=== PATIENT | female | born 1950 | race Caucasian/White ===

== ENCOUNTER 2016-09-11 09:11 | Emergency (ER) | payer OTHER, MEDICAID ==
[2016-09-11 09:19] VITALS: BMI 22.4
[2016-09-11] MEDS ORDERED: ECOTRIN TAB 325 MG PO ONE (10:02)
[2016-09-11] MEDS ORDERED: ASPIRIN 81 MG CHEWTAB ONE (10:04)
[2016-09-11] MEDS ORDERED: NS 1000 ML 1,000 ML ONE (10:04)
--- NOTE | 2016-09-11 10:04 | DR.GENAD ---
HPI - PCP Primary Care Physician: LANA PALOMARES - Complaint/Symptoms Chief Complaint Doctors Comments: Patient presents with c/o left arm pain and ledf chest wall pain or pressure. She denies a history of cardiopulmonary disease. On yesterday her spouse states that her heart rate was increased. up to 110. Chief Complaint:: PT C/O LEFT CHEST WALL PAIN AND LEFT ARM AND PT IS BURPING ".... AND I PICKED PEES THE DAY BEFORE YESTERDAY AND THAT COULD BE IT..BR Self Treatment fo Chief Complaint: PTS PAIN STARTED AND HOUR AGO AND PT WENT TO [facility] AND PT WAS TOLD TO COME TO THE ER.. - Source History Provided: Patient - Mode of Arrival Mode of Arrival: Wheelchair - Timing Onset of Chief Complaint: 09/11/16 PMH - PMH Past Medical History: Yes Past Medical History: Arthritis, Hypertension Past Surgical History: Yes Past Surgical History Comment: KNEE REPLACEMENT, FOOT , WRIST, THUMB, BLADDER TAC.. - Family History History of Family Medical Conditions: Yes Family Medical History: [place] Family Medical History Comment: MOTHER AT 58 - Social History Does patient currently use any type of tobacco product: No Have you used tobacco products in the last 12 months: No Type of Tobacco Use: None Does any household member use tobacco: No Alcohol Use: Occasionally Do you use any recreational Drugs:: No Lives With: Family Lives Where: Home - infectious screening In the last 2 months have you had wt loss of >10#?: NO Have you had fever, night sweats or hemotysis?: No Have you traveled outside the country in the last 6 months?: No Isolation: Standard ROS - Review of Systems Eyes: No Symptoms Reported ENTM: No Symptoms Reported Respiratoy: No Symptoms Reported Cardiovascular: No Symptoms Reported Gastrointestinal/Abdominal: No Symptoms Reported Genitourinary: No Symptoms Reported Neurological: No Symptoms Reported Musculoskeletal: No Symptoms Reported Integumentary: No Symptoms Reported Hematologic/Lymphatic: No Symptoms Reported Endocrine: No Symptoms Reported Psychiatric: No Symptoms Reported All Other Systems: Reviewed and Negative PE - Vital Signs Vitals: Temperature 97.7 F Pulse Rate [Right Brachial] 70 Pulse Rate 79 Respiratory Rate 20 Blood Pressure [Right Arm] 125/60 Blood Pressure 121/61 O2 Sat by Pulse Oximetry 100 - General Limitations: No Limitations General Appearance: Alert, In No Apparent Distress - Head Head Exam: Normal Inspection, Atraumatic - Eyes Eye exam: Normal Appearance, PERRL, EOMI - ENT ENT Exam: Normal Exam, Normal Oropharynx External Ear Exam: Normal External Inspection TM/Canal Exam: Bilateral Normal Nose Exam: Normal Nose Exam Mouth Exam: Normal Inspection Throat Exam: Normal Inspection - Neck Neck Exam: Normal Inspection, Full ROM - Chest Chest Inspection: Normal Inspection - Respiratory Respiratory Exam: Normal Lung Sounds Bilat Respiratory Exam: Bilateral Clear to Auscultation - Cardiovascular Cardiovascular Exam: Regular Rate, Normal Rhythm - Abdominal Exam Abdominal Exam: Normal Inspection Abdominal Tenderness: negative: RUQ, RLQ, LUQ, LLQ, Epigastrium, Suprapubic, Diffuse, Mild, Moderate, Severe, Other - Extremities Extremities Exam: Normal Inspection - Back Back Exam: Normal Inspection - Neurologic Neurological Exam: Alert, Oriented X3, CN II-XII Intact - Psychiatric Psychiatric Exam: Normal Affect, Normal Mood - Skin Skin Exam: Warm, Dry, Intact Course - Reevaluation 1st: Improved ROR - Labs Reviewed Laboratory Results Reviewed?: Yes (cardiac enzymes negative) Result Diagrams: 09/11/16 10:08 09/11/16 10:08 Laboratory: WBC 6.9 X10^3/uL (3.6-10.0) 09/11/16 10:08 RBC 3.47 X10^6/uL (3.5-5.4) L 09/11/16 10:08 Hgb 11.3 g/dL (12.0-16.0) L 09/11/16 10:08 Hct 32.5 % (36.0-47.0) L 09/11/16 10:08 MCV 93.7 fL (80.0-100.0) 09/11/16 10:08 MCH 32.5 pg (27.0-34.0) 09/11/16 10:08 MCHC 34.7 g/dL (33.0-35.0) 09/11/16 10:08 RDW 12.6 % (11.6-16.5) 09/11/16 10:08 Plt Count 244 X10^3/uL (150.0-450.0) 09/11/16 10:08 MPV 8.4 fL (7.4-11.0) 09/11/16 10:08 Neut % 67.7 % (42.0-75.0) 09/11/16 10:08 Lymph % 22.8 % (21.0-51.0) 09/11/16 10:08 [place] % 7.5 % (0.0-13.0) 09/11/16 10:08 Eos % 0.6 % (0.9-2.9) L 09/11/16 10:08 Baso % 1.4 % (0.2-1.0) H 09/11/16 10:08 Neut # 4.6 x10^3/uL (2.2-4.8) 09/11/16 10:08 Lymph # 1.6 X10^3/uL (1.3-2.9) 09/11/16 10:08 [place] # 0.5 x10^3/uL (0.3-0.8) 09/11/16 10:08 Eos # 0.0 x10^3/uL (0.0-0.2) 09/11/16 10:08 Baso # 0.1 X10^3/uL (0.0-0.1) 09/11/16 10:08 Absolute Nucleated RBC 0.1 /100WBC 09/11/16 10:08 INR Target Range - 09/11/16 10:08 INR 1.05 (0.8-1.3) 09/11/16 10:08 PTT 28.2 SECONDS (22.9-36.5) 09/11/16 10:08 PTT Comment - 09/11/16 10:08 Sodium 142 mmol/L (136-145) 09/11/16 10:08 Corrected Sodium TNP 09/11/16 10:08 Potassium 4.8 mmol/L (3.5-5.1) 09/11/16 10:08 Chloride 108 mmol/L (98-107) H 09/11/16 10:08 Carbon Dioxide 25.2 mmol/L (21-32) 09/11/16 10:08 BUN 21 mg/dL (7-18) H 09/11/16 10:08 Creatinine 1.15 mg/dL (0.55-1.02) H 09/11/16 10:08 Est GFR (MDRD) Af Amer > 60 (>60) 09/11/16 10:08 Est GFR (MDRD) Non-Af 50 (>60) L 09/11/16 10:08 Glucose 99 mg/dL (65-99) 09/11/16 10:08 Calcium 8.3 mg/dL (8.5-10.1) L 09/11/16 10:08 Corrected Calcium TNP 09/11/16 10:08 Phosphorus 3.6 mg/dL (2.6-4.7) 09/11/16 10:08 Magnesium 1.9 mg/dL (1.7-2.9) 09/11/16 10:08 Total Bilirubin 0.20 mg/dL (0.2-1.0) 09/11/16 10:08 AST 18 Units/L (15-37) 09/11/16 10:08 ALT 19 Units/L (12-78) 09/11/16 10:08 Alkaline Phosphatase 50 Units/L (46-116) 09/11/16 10:08 Creatine Kinase 73 Units/L (26-192) 09/11/16 10:08 CK-MB (CK-2) 1.1 ng/mL (0-4.0) 09/11/16 10:08 CK/CKMB % Calc 1.5 % (<4) 09/11/16 10:08 Troponin I < 0.02 ng/mL (0-1.5) 09/11/16 10:08 Total Protein 7.1 g/dL (6.4-8.2) 09/11/16 10:08 Albumin 3.6 g/dL (3.4-5.0) 09/11/16 10:08 Globulin 3.5 g/dL (2.5-4.5) 09/11/16 10:08 Albumin/Globulin Ratio 1.0 Ratio (1.1-2.1) L 09/11/16 10:08 - XRAY XRAY Interpreted by: Radiologist (No acute cardiopulmonary disease) - Diagnosis Discharge Problem: Dehydration, mild, Chest pressure - Discharge Plan Condition: Stable - Follow ups/Referrals Follow ups/Referrals: NFD,None [Primary Care Provider] - 3 days - Instructions
[2016-09-11 10:27] LABS: BASOPHILS # (AUTO) 0.1 X10^3/uL (0.0-0.1); BASOPHILS % (AUTO) 1.4 % (0.2-1.0); EOSINOPHILS % (AUTO) 0.6 % (0.9-2.9); HEMATOCRIT 32.5 % (36.0-47.0); HEMOGLOBIN 11.3 g/dL (12.0-16.0); LYMPHOCYTES # (AUTO) 1.6 X10^3/uL (1.3-2.9); LYMPHOCYTES % (AUTO) 22.8 % (21.0-51.0); MEAN CORPUSCULAR HEMOGLOBIN 32.5 pg (27.0-34.0); MEAN CORPUSCULAR HGB CONC 34.7 g/dL (33.0-35.0); MEAN CORPUSCULAR VOLUME 93.7 fL (80.0-100.0); MEAN PLATELET VOLUME 8.4 fL (7.4-11.0); MONOCYTES # (AUTO) 0.5 x10^3/uL (0.3-0.8); MONOCYTES % (AUTO) 7.5 % (0.0-13.0); NEUTROPHILS # (AUTO) 4.6 x10^3/uL (2.2-4.8); NEUTROPHILS % (AUTO) 67.7 % (42.0-75.0); PLATELET COUNT 244 X10^3/uL (150.0-450.0); RED BLOOD COUNT 3.47 X10^6/uL (3.5-5.4); RED CELL DISTRIBUTION WIDTH 12.6 % (11.6-16.5); WHITE BLOOD COUNT 6.9 X10^3/uL (3.6-10.0)
[2016-09-11 10:37] LABS: BLOOD UREA NITROGEN 21 mg/dL (7-18); CALCIUM 8.3 mg/dL (8.5-10.1); CARBON DIOXIDE 25.2 mmol/L (21-32); CHLORIDE 108 mmol/L (98-107); CREATININE 1.15 mg/dL (0.55-1.02); GLUCOSE 99 mg/dL (65-99); SODIUM 142 mmol/L (136-145); TROPONIN I < 0.02 ng/mL (0-1.5); eGFR BLACK RACES > 60 (>60); eGFR NON BLACK RACES 50 (>60)
[2016-09-11 10:41] LABS: ALANINE AMINOTRANSFERASE 19 Units/L (12-78); ALBUMIN 3.6 g/dL (3.4-5.0); ALKALINE PHOSPHATASE 50 Units/L (46-116); ASPARTATE AMINO TRANSFERASE 18 Units/L (15-37); CKMB % 1.5 % (<4); CREATINE KINASE 73 Units/L (26-192); CREATINE KINASE MB 1.1 ng/mL (0-4.0); MAGNESIUM 1.9 mg/dL (1.7-2.9); TOTAL PROTEIN 7.1 g/dL (6.4-8.2)
[2016-09-11] MEDS ORDERED: NS 1000 ML 1,000 ML IV SCH (11:00)
--- NOTE | 2016-09-11 11:03 | RAD ---
HISTORY: Left-sided chest pain. Study: Chest one view Comparison: None. Findings: The trachea is midline. The cardiac silhouette is unremarkable. The lungs are clear without focal infiltrate or effusion. The bony thorax is unremarkable. IMPRESSION: 1. No acute cardiopulmonary disease. Reported By:
[2016-09-11 11:24] VITALS: BP 112/61
== END 2016-09-11 11:24 | disposition home or self-care (01) ==
LOC: ER 09:29
DX: E86.0 Dehydration (principal); R07.89 Other chest pain
CPT/HCPCS: 36415; 71010; 80053; 82550; 82553; 83735; 84100; 84484; 85025; 85610; 85730; 93005; 93010; 96365; 99283; A4222

== ENCOUNTER 2020-02-05 00:57 | Observation (INO) ==
[2020-02-05 01:38] LABS: BASOPHILS # (AUTO) 0.2 X10^3/uL (0.0-0.1); BASOPHILS % (AUTO) 2.5 % (0.2-1.0); EOSINOPHILS # (AUTO) 0.1 x10^3/uL (0.0-0.2); EOSINOPHILS % (AUTO) 1.5 % (0.9-2.9); HEMATOCRIT 32.2 % (36.0-47.0); LYMPHOCYTES # (AUTO) 1.9 X10^3/uL (1.3-2.9); LYMPHOCYTES % (AUTO) 31.9 % (21.0-51.0); MEAN CORPUSCULAR HEMOGLOBIN 31.8 pg (27.0-34.0); MEAN CORPUSCULAR HGB CONC 34.3 g/dL (33.0-35.0); MEAN CORPUSCULAR VOLUME 92.8 fL (80.0-100.0); MEAN PLATELET VOLUME 7.3 fL (7.4-11.0); MONOCYTES # (AUTO) 0.5 x10^3/uL (0.3-0.8); MONOCYTES % (AUTO) 8.8 % (0.0-13.0); NEUTROPHILS # (AUTO) 3.4 x10^3/uL (2.2-4.8); NEUTROPHILS % (AUTO) 55.3 % (42.0-75.0); PLATELET COUNT 494 X10^3/uL (150.0-450.0); RED BLOOD COUNT 3.46 X10^6/uL (3.5-5.4); RED CELL DISTRIBUTION WIDTH 15.5 % (11.6-16.5); WHITE BLOOD COUNT 6.1 X10^3/uL (3.6-10.0)
[2020-02-05] MEDS ORDERED: TORADOL 30 MG VIAL IVP ONE (01:44)
[2020-02-05] MEDS ORDERED: ZOFRAN INJ 4 MG VIAL IVP ONE (01:44)
[2020-02-05] MEDS ORDERED: NS 1000 ML 1,000 ML IV ONE (01:44)
--- NOTE | 2020-02-05 01:47 | DR.CP ---
HPI Time Seen Time Seen by Provider: 02/05/20 01:40 PCP Primary Care Physician: JOHNNY HPI Comment HPI Comment: Patient presents with chest and abdominal pain x2-3 days. Had back surgery 3 weeks ago. Denies any bad food or known sick contact. Notes that pain got worse tonight. Complaint Chief Complaint:: PT AMBULATORY IN ED WITH C/O CHEST PAIN ALL THE WAY ACROSS AND AROUND BACK. RECENTLY HAD BACK SURGERY. ALSO C/O LEG CRAMPS. COVID-19 Coronavirus risk:travel/contact w/high risk person: No Has patient experienced Coronavirus symptoms: No Source History Provided: Patient Mode of Arrival Mode of Arrival: Ambulatory Timing Onset of Chief Complaint: 02/01/20 PMH PMH Past Medical History: Yes Past Medical History: Arthritis and Hypertension Past Surgical History: Yes Surgical History: Ortho Surgery Past Surgical History Comment: BACK BILATERAL KNEES RIGHT HIP Family History History of Family Medical Conditions: Yes Family Medical History: [place] Social History Does patient currently use any type of tobacco product: No Have you used tobacco products in the last 12 months: No Type of Tobacco Use: None Does any household member use tobacco: No Alcohol Use: None Do you use any recreational Drugs:: No Lives With: Spouse Lives Where: Home Travel Risk Coronavirus risk:travel/contact w/high risk person: No Has patient experienced Coronavirus symptoms: No Infectious screening In the last 2 months have you had wt loss of >10#?: NO Have you had fever, night sweats or hemotysis?: No Have you traveled outside the country in the last 6 months?: No Isolation: Standard ROS Review of Systems Constitutional: See HPI Cardiovascular: Chest Pain Gastrointestinal/Abdominal: Abdominal Pain, Nausea and Vomiting All Other Systems: Reviewed and Negative PE Vitals Vitals: Temperature 98.5 F Pulse Rate 70 Respiratory Rate 25 Blood Pressure [Right Arm] 120/59 Blood Pressure 181/83 O2 Sat by Pulse Oximetry 97 General Limitations: No Limitations General Appearance: Alert and In No Apparent Distress Head Head Exam: Normal Inspection and Normocephalic Eyes Eye exam: Normal Appearance and EOMI Chest Chest Inspection: Normal Inspection and Symmetric Chest Wall Rise Respiratory Respiratory Exam: Normal Lung Sounds Bilat Respiratory Exam: Bilateral: Clear to Auscultation Cardiovascular Cardiovascular Exam: Regular Rate, Normal Rhythm and Normal Heart Sounds Abdominal Exam Abdominal Exam: Normal Inspection, Normal Bowel Sounds, Soft and Tenderness (diffuse) Neurologic Neurological Exam: Alert and Oriented X3 Skin Skin Exam: Warm, Dry and Intact COURSE Reevaluation 1st: Unchanged Consultation Called: 05:16 Call Returned: 05:16 Consultation Comments: Spoke with Dr. Benitez who accepts patient for admission ROR Labs Reviewed Result Diagrams: 02/05/20 01:24 02/05/20 01:24 Laboratory: WBC 6.1 X10^3/uL (3.6-10.0) 02/05/20 01:24 RBC 3.46 X10^6/uL (3.5-5.4) L 02/05/20 01:24 Hgb 11.0 g/dL (12.0-16.0) L 02/05/20 01:24 Hct 32.2 % (36.0-47.0) L 02/05/20 01:24 MCV 92.8 fL (80.0-100.0) 02/05/20 01:24 MCH 31.8 pg (27.0-34.0) 02/05/20 01:24 MCHC 34.3 g/dL (33.0-35.0) 02/05/20 01:24 RDW 15.5 % (11.6-16.5) 02/05/20 01:24 Plt Count 494 X10^3/uL (150.0-450.0) H 02/05/20 01:24 MPV 7.3 fL (7.4-11.0) L 02/05/20 01:24 Neut % (Auto) 55.3 % (42.0-75.0) 02/05/20 01:24 Lymph % (Auto) 31.9 % (21.0-51.0) 02/05/20 01:24 [place] % (Auto) 8.8 % (0.0-13.0) 02/05/20 01:24 Eos % (Auto) 1.5 % (0.9-2.9) 02/05/20 01:24 Baso % (Auto) 2.5 % (0.2-1.0) H 02/05/20 01:24 Neut # (Auto) 3.4 x10^3/uL (2.2-4.8) 02/05/20 01:24 Lymph # (Auto) 1.9 X10^3/uL (1.3-2.9) 02/05/20 01:24 [place] # (Auto) 0.5 x10^3/uL (0.3-0.8) 02/05/20 01:24 Eos # (Auto) 0.1 x10^3/uL (0.0-0.2) 02/05/20 01:24 Baso # (Auto) 0.2 X10^3/uL (0.0-0.1) H 02/05/20 01:24 Absolute Nucleated RBC 0.0 /100WBC 02/05/20 01:24 D-Dimer 1.94 ug/ml (0.0-0.57) H* 02/05/20 01:24 Sodium 137 mmol/L (136-145) 02/05/20 01:24 Corrected Sodium TNP 02/05/20 01:24 Potassium 4.0 mmol/L (3.5-5.1) 02/05/20 01:24 Chloride 100 mmol/L (98-107) 02/05/20 01:24 Carbon Dioxide 24.8 mmol/L (21-32) 02/05/20 01:24 BUN 17 mg/dL (7-18) 02/05/20 01:24 Creatinine 1.68 mg/dL (0.55-1.02) H 02/05/20 01:24 Est GFR (MDRD) Af Amer 39 (>60) L 02/05/20 01:24 Est GFR (MDRD) Non-Af 32 (>60) L 02/05/20 01:24 Glucose 104 mg/dL (65-99) H 02/05/20 01:24 Calcium 9.5 mg/dL (8.5-10.1) 02/05/20 01:24 Corrected Calcium TNP 02/05/20 01:24 Total Bilirubin 0.30 mg/dL (0.2-1.0) 02/05/20 01:24 AST 43 Units/L (15-37) H 02/05/20 01:24 ALT 25 Units/L (12-78) 02/05/20 01:24 Alkaline Phosphatase 102 Units/L (46-116) 02/05/20 01:24 Creatine Kinase 482 Units/L (26-192) H 02/05/20 03:55 CK-MB (CK-2) 8.5 ng/mL (0-4.0) H* 02/05/20 03:55 CK/CKMB % Calc 1.8 % (<4) 02/05/20 03:55 Troponin I < 0.02 ng/mL (0-1.5) 02/05/20 03:55 Total Protein 8.6 g/dL (6.4-8.2) H 02/05/20 01:24 Albumin 4.4 g/dL (3.4-5.0) 02/05/20 01:24 Globulin 4.2 g/dL (2.5-4.5) 02/05/20 01:24 Albumin/Globulin Ratio 1.0 Ratio (1.1-2.1) L 02/05/20 01:24 XRAY X-ray Results: HISTORY CHEST PAIN STUDY CHEST, 1 VIEW COMPARISON Chest radiograph report 09/11/2016 FINDINGS The trachea is midline. The cardiac silhouette is unremarkable . The lungs are clear without focal infiltrate or effusion. The bony thorax is unremarkable. IMPRESSION No acute cardiopulmonary disease. Electronically signed by: Margy Alex (Feb 05, 2020 01:45:31) EKG [place]: Normal Rhythm: NSR Block: LBBB ST: Nonsp Opioid Opioid Risk Tool Age (Aden box if 16-45): No History of Preadolescent Sexual Abuse: No Total: 0 Total Score Risk Category: Low Risk Copyright: Narayan MENDOZA predicting aberrant behaviors Diagnosis Discharge Problem: New onset left bundle branch block (LBBB) Chest pain Qualifiers: Chest pain type: unspecified Qualified Code(s): R07.9 - Chest pain, unspecified
--- NOTE | 2020-02-05 01:47 | RAD ---
HISTORYCHEST PAINSTUDYCHEST, 1 VIEWCOMPARISONChest radiograph report 09/11/2016FINDINGSThe trachea is midline. The cardiac silhouette is unremarkable . The lungs are clear without focal infiltrate or effusion. The bony thorax is unremarkable.IMPRESSIONNo acute cardiopulmonary disease.Electronically signed by: Margy Alex (Feb 05, 2020 01:45:31)
[2020-02-05] MEDS ORDERED: ZOFRAN INJ 4 MG VIAL ONE (01:50)
[2020-02-05] MEDS ORDERED: TORADOL 30 MG VIAL ONE (01:50)
[2020-02-05] MEDS ORDERED: NS 1000 ML 1,000 ML ONE (01:50)
[2020-02-05 01:52] LABS: BLOOD UREA NITROGEN 17 mg/dL (7-18); CALCIUM 9.5 mg/dL (8.5-10.1); CARBON DIOXIDE 24.8 mmol/L (21-32); CHLORIDE 100 mmol/L (98-107); CREATININE 1.68 mg/dL (0.55-1.02); SODIUM 137 mmol/L (136-145); TROPONIN I < 0.02 ng/mL (0-1.5); eGFR NON BLACK RACES 32 (>60)
[2020-02-05] MEDS ORDERED: LEVSIN/MAALOX/LIDOC VISC PO ONE (02:08)
[2020-02-05] MEDS ORDERED: LEVSIN/MAALOX/LIDOC VISC ONE (02:09)
[2020-02-05 02:11] LABS: ALANINE AMINOTRANSFERASE 25 Units/L (12-78); ALBUMIN 4.4 g/dL (3.4-5.0); ALKALINE PHOSPHATASE 102 Units/L (46-116); ASPARTATE AMINO TRANSFERASE 43 Units/L (15-37); CKMB % 1.6 % (<4); CREATINE KINASE 509 Units/L (26-192); TOTAL PROTEIN 8.6 g/dL (6.4-8.2)
[2020-02-05] MEDS ORDERED: BENADRYL CAP/TAB 25 MG PO ONE ×2 (03:24→03:27)
[2020-02-05] MEDS ORDERED: PERCOCET TAB 5/325 MG PO ONE (03:25)
[2020-02-05] MEDS ORDERED: PERCOCET TAB 5/325 MG ONE (03:26)
[2020-02-05 04:42] LABS: CKMB % 1.8 % (<4); CREATINE KINASE 482 Units/L (26-192); TROPONIN I < 0.02 ng/mL (0-1.5)
[2020-02-05 04:43] LABS: CREATINE KINASE MB 8.5 ng/mL (0-4.0)
[2020-02-05] MEDS ORDERED: ULTRAM PO ONE (06:20)
[2020-02-05] MEDS ORDERED: ULTRAM ONE (06:21)
[2020-02-05 06:27] LABS: CKMB % 1.7 % (<4); CREATINE KINASE 483 Units/L (26-192); TROPONIN I < 0.02 ng/mL (0-1.5)
[2020-02-05 06:29] LABS: CREATINE KINASE MB 8.4 ng/mL (0-4.0)
[2020-02-05 08:03] VITALS: BMI 24.7
[2020-02-05] MEDS ORDERED: ASPIRIN PO SCH (09:00)
[2020-02-05] MEDS ORDERED: LOVENOX INJ 30 MG SYR SC SCH (09:00)
[2020-02-05] MEDS ORDERED: LOVENOX INJ 40 MG SYR SC SCH (09:00)
[2020-02-05] MEDS ORDERED: PROTONIX INJ 40 MG VIAL IVP SCH (09:00)
[2020-02-05 12:02] VITALS: BP 166/91
--- NOTE | 2020-02-05 12:03 | RAD ---
HISTORYPainSTUDYAbdomen with AP chest three viewsCOMPARISONAP chest 02/05/2020, 1:30 a.m.FINDINGSAP chest continues normal. No pleural fluid or pneumoperitoneum identified. Upright and supine views of abdomen demonstrate moderate gaseous dilatation of scattered segments of small bowel and colon. There is no evidence for free air, pneumatosis, ascites or mass formation. Surgical hardware noted in the lumbar spine and left hip.IMPRESSIONNonobstructive intestinal gas pattern consistent with ileus. There is no evidence for definite obstruction or perforation.Electronically signed by: CORNEL STILES (Feb 05, 2020 12:01:16)
[2020-02-05 12:17] LABS: CKMB % 1.6 % (<4); CREATINE KINASE 469 Units/L (26-192); TROPONIN I < 0.02 ng/mL (0-1.5)
[2020-02-05 12:28] LABS: CREATINE KINASE MB 7.6 ng/mL (0-4.0)
[2020-02-05] MEDS ORDERED: COLACE CAP 100 MG PO STA (12:33)
[2020-02-05] MEDS ORDERED: LR 1000 ML IV 1,000 ML IV ONE (12:48)
[2020-02-06] MEDS ORDERED: LINZESS PO SCH (09:00)
== END 2020-02-06 02:51 | disposition home or self-care (01) ==
LOC: MED/SURG 00:59 → ER 00:59 → MED/SURG 07:14
PROVIDERS: ADMIT Obstetrics & Gynecology Obstetrics; ATTEND Internal Medicine
DX: Z20.828 Contact with and (suspected) exposure to other viral communicable diseases; R10.84 Generalized abdominal pain; R07.89 Other chest pain; R94.4 Abnormal results of kidney function studies; Z53.29 Procedure and treatment not carried out because of patient's decision for other reasons; R94.31 Abnormal electrocardiogram [ECG] [EKG]